=== PATIENT | female | born 1970 | race Caucasian/White ===

== ENCOUNTER 2017-10-15 13:08 | Inpatient (IN) | payer OTHER ==
[2017-10-15 13:26] LABS: ADD MAN DIFF? NO
[2017-10-15 13:34] LABS: BASO # 0.2 x10^3/uL (0.0-0.2); BASO % 1 % (0-3); EOS # 0.3 x10^3/uL (0.0-0.7); EOS % 2 % (0-3); HEMATOCRIT 38.9 % (36.0-47.0); HEMOGLOBIN 12.7 g/dL (12.0-15.5); LYMPH # 4.2 x10^3/uL (1.0-4.8); LYMPH % 37 % (24-48); MEAN CORPUSCULAR HEMOGLOBIN 27 pg (25-35); MEAN CORPUSCULAR HGB CONC 33 g/dL (31-37); MEAN CORPUSCULAR VOLUME 82 fL (79-100); MONO # 0.5 x10^3/uL (0.0-1.1); MONO % 4 % (0-9); NEUT # 6.1 x10^3uL (1.8-7.7); NEUT % 55 % (31-73); PLATELET COUNT 255 x10^3/uL (140-400); RED BLOOD COUNT 4.78 x10^6/uL (3.50-5.40); RED CELL DISTRIBUTION WIDTH 15.7 % (11.5-14.5); WHITE BLOOD COUNT 11.1 x10^3/uL (4.0-11.0)
[2017-10-15] MEDS: IV NORMAL SALINE 1000ML BAG 1,000 ML IV (13:35)
[2017-10-15] MEDS: KETOROLAC 30 MG/ML INJ. IV (13:36)
[2017-10-15 13:38] LABS: PARTIAL THROMBOPLASTIN TIME 27 SEC (24-38)
[2017-10-15] MEDS: fentaNYL PF VIAL 100 MCG/2 ML VIAL IV ×4 (13:38→21:19)
[2017-10-15] MEDS: PROMETHAZINE 12.5 MG in IV NORMAL SALINE 50ML 50 ML IV (13:39)
[2017-10-15 14:25] LABS: ANION GAP 11 (6-14); BLOOD UREA NITROGEN 7 mg/dL (7-20); BUN/CREATININE RATIO 10 (6-20); CALCIUM 9.1 mg/dL (8.5-10.1); CARBON DIOXIDE 27 mmol/L (21-32); CHLORIDE 104 mmol/L (98-107); CREATININE 0.7 mg/dL (0.6-1.0); GFR 90.1; GLUCOSE 126 mg/dL (70-99); POTASSIUM 4.6 mmol/L (3.5-5.1); SODIUM 142 mmol/L (136-145)
[2017-10-15 14:28] LABS: BILIRUBIN,URINE NEGATIVE (NEG); COLOR,URINE YELLOW; GLUCOSE,URINE NEGATIVE (NEG); NITRITE,URINE NEGATIVE (NEG); PH,URINE 5.5; PROTEIN,URINE 30 mg/dL (NEG-TRACE); UROBILINOGEN,URINE 0.2 mg/dL (0.2 mg/dL)
[2017-10-15 14:31] LABS: ALBUMIN 3.4 g/dL (3.4-5.0); ALBUMIN/GLOBULIN RATIO 1.1 (1.0-1.7); ALK PHOS 72 U/L (46-116); ALT (SGPT) 84 U/L (14-59); AST (SGOT) 50 U/L (15-37); CREATINE KINASE 23 U/L (26-192); LIPASE 71 U/L (73-393); MAGNESIUM 1.3 mg/dL (1.8-2.4); TOTAL BILIRUBIN 0.2 mg/dL (0.2-1.0); TOTAL PROTEIN 6.4 g/dL (6.4-8.2)
[2017-10-15 14:33] LABS: TROPONINI < 0.017 ng/mL (0.000-0.055)
[2017-10-15 14:37] LABS: NT-PRO BNP 16 pg/mL (0-124)
[2017-10-15 14:38] LABS: CLARITY,URINE HAZY
[2017-10-15 14:43] LABS: BACTERIA,URINE MANY /HPF (0-FEW); RBC,URINE 0 /HPF (0-2); SQUAMOUS EPITHELIAL CELL,UR MANY /LPF
[2017-10-15] MEDS ORDERED: ONDANSETRON PF 4 MG/2 ML VIAL. IV (14:45)
[2017-10-15] MEDS: PROMETHAZINE IM 25 MG/ML VIAL IM (14:57)
[2017-10-15] MEDS: MAGNESIUM OXIDE 400 MG TABLET PO (14:59)
[2017-10-15] MEDS: MAGNESIUM SULFATE 2GM 50 ML IV (15:00)
[2017-10-15] MEDS ORDERED: ACETAMINOPHEN 500 MG TABLET PO (15:15)
[2017-10-15] MEDS ORDERED: ALPRAZolam 0.5 MG TABLET PO ×2 (15:15→18:45)
[2017-10-15 15:18] LABS: THYROID STIM HORMONE (TSH) 0.587 uIU/mL (0.358-3.74)
[2017-10-15] MEDS ORDERED: DEXTROSE 50% 25 GM / 50ML DISP.SYRIN. IV (16:00)
[2017-10-15] MEDS: INSULIN ASPART 300 UNITS/3 ML INSULN.PEN SQ (17:00)
[2017-10-15 17:20] LABS: POC GLUCOSE 89 mg/dL (70-99)
[2017-10-15] MEDS: LURASIDONE 40 MG TABLET. PO (17:30)
[2017-10-15] MEDS: CITALOPRAM 20 MG TABLET. PO (17:30)
[2017-10-15] MEDS: lamoTRIgine 25 MG TABLET. PO (18:17)
[2017-10-15 18:48] LABS: TROPONINI < 0.017 ng/mL (0.000-0.055)
[2017-10-15 20:54] LABS: TROPONINI < 0.017 ng/mL (0.000-0.055)
[2017-10-15] MEDS: DOMPERIDONE 10 MG PO (21:00)
[2017-10-15] MEDS ORDERED: TOPIRAMATE 25 MG TABLET. PO (21:00)
[2017-10-15] MEDS ORDERED: ATORVASTATIN CALCIUM 10 MG TABLET. PO (21:00)
[2017-10-15] MEDS: ATORVASTATIN CALCIUM 10 MG TABLET. PO (21:19)
[2017-10-15] MEDS: ALPRAZolam 0.5 MG TABLET PO (21:19)
[2017-10-15] MEDS: LEVOTHYROXINE 25 MCG TABLET. PO (21:19)
[2017-10-15] MEDS: PANTOPRAZOLE 40 MG TABLET.DR. PO (21:20)
[2017-10-15] MEDS: PROPRANOLOL ER 60 MG CAP.SA.24H. PO (21:20)
[2017-10-15 21:40] LABS: POC GLUCOSE 121 mg/dL (70-99)
[2017-10-16] MEDS: ONDANSETRON PF 4 MG/2 ML VIAL. IV ×2 (03:38→18:02)
[2017-10-16] MEDS: fentaNYL PF VIAL 100 MCG/2 ML VIAL IV ×2 (03:38→11:02)
[2017-10-16 05:45] LABS: HEMOGLOBIN A1C 6.1 % (4.8-5.6)
[2017-10-16 07:35] LABS: ADD MAN DIFF? NO
[2017-10-16 07:54] LABS: BASO % 0 % (0-3); EOS # 0.2 x10^3/uL (0.0-0.7); EOS % 3 % (0-3); HEMATOCRIT 35.2 % (36.0-47.0); HEMOGLOBIN 11.5 g/dL (12.0-15.5); LYMPH # 3.3 x10^3/uL (1.0-4.8); LYMPH % 40 % (24-48); MEAN CORPUSCULAR HEMOGLOBIN 27 pg (25-35); MEAN CORPUSCULAR HGB CONC 33 g/dL (31-37); MEAN CORPUSCULAR VOLUME 82 fL (79-100); MONO # 0.4 x10^3/uL (0.0-1.1); MONO % 5 % (0-9); NEUT # 4.3 x10^3uL (1.8-7.7); NEUT % 53 % (31-73); PLATELET COUNT 184 x10^3/uL (140-400); RED BLOOD COUNT 4.29 x10^6/uL (3.50-5.40); WHITE BLOOD COUNT 8.2 x10^3/uL (4.0-11.0)
[2017-10-16 07:57] LABS: ANION GAP 8 (6-14); BLOOD UREA NITROGEN 10 mg/dL (7-20); CALCIUM 8.5 mg/dL (8.5-10.1); CARBON DIOXIDE 29 mmol/L (21-32); CHLORIDE 106 mmol/L (98-107); CREATININE 0.7 mg/dL (0.6-1.0); GFR 90.1; GLUCOSE 87 mg/dL (70-99); SODIUM 143 mmol/L (136-145)
[2017-10-16] MEDS ORDERED: METHYLPHENIDATE HCL PO (08:00)
[2017-10-16] MEDS: INSULIN ASPART 300 UNITS/3 ML INSULN.PEN SQ ×3 (08:00→17:00)
[2017-10-16] MEDS: DOMPERIDONE 10 MG PO ×3 (09:00→21:00)
[2017-10-16 09:07] LABS: MAGNESIUM 1.8 mg/dL (1.8-2.4)
[2017-10-16 12:11] LABS: POC GLUCOSE 88 mg/dL (70-99)
[2017-10-16] MEDS: REGADENOSON 0.4 MG/5 ML DISP.SYRIN. IV (15:11)
[2017-10-16] MEDS: IBUPROFEN 400 MG TABLET. PO (15:34)
[2017-10-16 18:28] LABS: POC GLUCOSE 109 mg/dL (70-99)
[2017-10-16] MEDS: lamoTRIgine 25 MG TABLET. PO (20:14)
[2017-10-16] MEDS: LEVOTHYROXINE 25 MCG TABLET. PO (20:14)
[2017-10-16] MEDS: IBUPROFEN 600 MG TABLET. PO (20:14)
[2017-10-16] MEDS: ATORVASTATIN CALCIUM 10 MG TABLET. PO (20:15)
[2017-10-16] MEDS: PANTOPRAZOLE 40 MG TABLET.DR. PO (20:15)
[2017-10-16] MEDS: PROPRANOLOL ER 60 MG CAP.SA.24H. PO (20:15)
[2017-10-16] MEDS: ALPRAZolam 0.5 MG TABLET PO (20:16)
[2017-10-17 07:45] LABS: POC GLUCOSE 89 mg/dL (70-99)
[2017-10-17] MEDS: INSULIN ASPART 300 UNITS/3 ML INSULN.PEN SQ ×2 (08:00→12:00)
[2017-10-17] MEDS: DOMPERIDONE 10 MG PO (08:53)
[2017-10-17 12:28] LABS: POC GLUCOSE 93 mg/dL (70-99)
[2017-10-17] MEDS: IBUPROFEN 600 MG TABLET. PO (16:00)
== END 2017-10-17 17:09 | disposition home or self-care (01) | DRG 74 ==
LOC: ER 13:08 → ED HOLD 14:44 → 6 SOUTH 16:51
DX: E11.43 Type 2 diabetes mellitus with diabetic autonomic (poly)neuropathy (principal); E83.42 Hypomagnesemia; R55 Syncope and collapse; K31.84 Gastroparesis; D72.828 Other elevated white blood cell count; E03.9 Hypothyroidism, unspecified; E66.9 Obesity, unspecified; E78.5 Hyperlipidemia, unspecified; G47.00 Insomnia, unspecified; I10 Essential (primary) hypertension; F41.9 Anxiety disorder, unspecified; K21.9 Gastro-esophageal reflux disease without esophagitis; Z97.0 Presence of artificial eye; Z68.32 Body mass index [BMI] 32.0-32.9, adult; Z79.84 Long term (current) use of oral hypoglycemic drugs; Z79.899 Other long term (current) drug therapy; Z82.49 Family history of ischemic heart disease and other diseases of the circulatory system; Z90.710 Acquired absence of both cervix and uterus
CPT/HCPCS: 36415; 71045; 78452; 80048; 80053; 81001; 82550; 82962; 83036; 83690; 83735; 83880; 84443; 84484; 85025; 85610; 85730; 87086; 93005; 93017; 93306; 96365; 96366; 96367; 96372; 96374; 96375; 96376; 99285; 99285-25; A9500; J1885; J2405; J2550; J2785; J3010; J3475; J7030